=== PATIENT | female | born 1950 | race Caucasian/White ===

== ENCOUNTER → 2016-10-04 | Outpatient (CLI) | payer MEDICARE | END | disposition home or self-care (01) | LOC: CFH 07:16 | PROVIDERS: ATTEND Family Medicine | DX: E04.2 Nontoxic multinodular goiter (principal); E21.3 Hyperparathyroidism, unspecified | CPT/HCPCS: 76536 ==

== ENCOUNTER → 2017-04-28 | Outpatient (CLI) | payer MEDICARE ==
[~2017-04-28] MED LIST: CHOL200024 PO; CLON0.2T PO; GABA300C10 PO; HYDR-3240 PO; HYDR-3241 PO; LOSA100T6 PO; OMEP-110 PO; PRAV20TA2 PO; SERT50TA5 PO
[2017-04-28 08:56] LABS: ALANINE AMINOTRANSFERASE 24 U/L (12-78); ALBUMIN 4.1 g/dL (3.4-5.0); ANION GAP 10 mmol/L (5-15); CALCIUM 9.7 mg/dL (8.5-10.1); CHLORIDE 109 mmol/L (98-107); CREATININE 0.88 mg/dL (0.55-1.02)
[2017-04-28 08:58] LABS: ALKALINE PHOSPHATASE 152 U/L (45-117); BILIRUBIN,TOTAL 0.4 mg/dL (0.2-1.0); TOTAL PROTEIN 8.1 g/dL (6.4-8.2)
== END | disposition home or self-care (01) ==
LOC: STAR 08:00
PROVIDERS: ATTEND Surgery
DX: Z01.818 Encounter for other preprocedural examination (principal); R94.31 Abnormal electrocardiogram [ECG] [EKG]; E04.2 Nontoxic multinodular goiter; E21.0 Primary hyperparathyroidism
CPT/HCPCS: 36415; 80053; 93005

== ENCOUNTER 2017-05-02 07:46 | Inpatient (IN) | payer MEDICARE ==
[~2017-05-02] VITALS: Ht 167.6 cm; Wt 95.8 kg
[~2017-05-02 07:46] MED LIST changes: -HYDR-3240 PO
[2017-05-02] MEDS ORDERED: LACTATED RINGERS 1,000 ML IV SCH (08:19)
[2017-05-02] MEDS ORDERED: LIDOCAINE 1%, 2ML SQ PRN (08:30)
[2017-05-02] MEDS ORDERED: MIDAZOLAM 1 MG/ML, 2ML ONE (08:46)
[2017-05-02] MEDS ORDERED: LIDOCAINE 1%, 2ML ONE (08:51)
[2017-05-02] MEDS ORDERED: FENTANYL PF 250 MCG/5ML ONE (09:02)
[2017-05-02] MEDS ORDERED: PROPOFOL 10 MG/ML, 20ML ONE (10:15)
[2017-05-02] MEDS ORDERED: SUCCINYLCHOLINE 20 MG/ML, 10ML ONE (10:15)
[2017-05-02] MEDS ORDERED: ONDANSETRON 2MG/ML, 2ML ONE (10:19)
[2017-05-02] MEDS ORDERED: DEXAMETHASONE 4 MG/ML, 1ML ONE (10:19)
[2017-05-02] MEDS ORDERED: BUPIVACAINE/PF 0.5% INFIL ONE (10:39)
[2017-05-02] MEDS ORDERED: MIDAZOLAM 1 MG/ML, 2ML IV PRN (11:00)
[2017-05-02] MEDS ORDERED: ACETAMINOPHEN 325 MG TABLET PO PRN ×2 (11:00→15:00)
[2017-05-02] MEDS ORDERED: hydrALAzine 20 MG/ML, 1ML IV PRN ×2 (11:00→15:00)
[2017-05-02] MEDS ORDERED: ALBUTEROL SULFATE 2.5 MG/3 ML NPPB PRN (11:00)
[2017-05-02] MEDS ORDERED: EPHEDRINE 50 MG/ML, 1ML IVPush PRN (11:00)
[2017-05-02] MEDS ORDERED: PROMETHAZINE 12.5 MG SUPP PR PRN (11:00)
[2017-05-02] MEDS ORDERED: METOPROLOL 1 MG/ML, 5ML IV PRN (11:00)
[2017-05-02] MEDS ORDERED: MEPERIDINE/PF 25MG/0.5ML IVPush PRN (11:00)
[2017-05-02] MEDS ORDERED: ONDANSETRON 2MG/ML, 2ML IVPush PRN (11:00)
[2017-05-02] MEDS ORDERED: PROMETHAZINE 25 MG/ML, 1ML IV PRN (11:00)
[2017-05-02 12:10] LABS: 10MIN %DROP IOPTH 82 %; 5MIN %DROP IOPTH 81 %; IOPTH BASELINE 192 pg/mL; SAMPLE 5 %DROP IOPTH 63 %
[2017-05-02] MEDS ORDERED: FENTANYL PF 100 MCG/2ML ONE ×2 (12:40→13:14)
[2017-05-02] MEDS ORDERED: HYDROcodone/APAP 7.5-325MG/15ML UDC ONE (12:40)
[2017-05-02] MEDS: FENTANYL PF 100 MCG/2ML IV PRN ×4 (12:45→13:37)
[2017-05-02] MEDS ORDERED: METOPROLOL 1 MG/ML, 5ML ONE (12:53)
[2017-05-02] MEDS ORDERED: HYDROcodone/APAP 7.5-325MG/15ML UDC PO PRN (13:00)
[2017-05-02] MEDS ORDERED: hydrALAzine 20 MG/ML, 1ML ONE (13:14)
[2017-05-02] MEDS ORDERED: LABETALOL 5MG/ML, 20ML ONE (13:43)
[2017-05-02] MEDS ORDERED: LABETALOL 5MG/ML, 20ML IVPush STA (13:52)
[2017-05-02] MEDS ORDERED: BUPIVACAINE/PF 0.5% ONE (14:00)
[2017-05-02] MEDS ORDERED: LABETALOL 5MG/ML, 20ML IVPush PRN (14:00)
[2017-05-02] MEDS ORDERED: EPINEPHRINE 1 MG/ML, 1ML ONE (14:00)
[2017-05-02 14:25] VITALS: BP 138/87
[2017-05-02] MEDS ORDERED: ONDANSETRON 2MG/ML, 2ML IV PRN (15:00)
[2017-05-02] MEDS ORDERED: ACETAMINOPHEN 650 MG SUPP PR PRN (15:00)
[2017-05-02] MEDS: CALCIUM/VITAMIN D3 250-125 TABLET PO SCH ×2 (17:58→21:08)
[2017-05-02] MEDS: GABAPENTIN 300 MG CAPSULE PO SCH ×2 (17:58→21:08)
[2017-05-02] MEDS: HYDROcodone/APAP 5/325 TABLET PO PRN (17:58)
[2017-05-02 19:23] VITALS: BP 116/76
[2017-05-02] MEDS ORDERED: PRAVASTATIN 20 MG TABLET PO SCH (21:00)
[2017-05-02 23:49] VITALS: BP 107/72
[2017-05-03 04:40] VITALS: BP 127/78
[2017-05-03 05:14] LABS: CALCIUM 8.7 mg/dL (8.5-10.1)
[2017-05-03 07:15] VITALS: BP 110/70
[2017-05-03] MEDS ORDERED: OMEPRAZOLE 20 MG CAPSULE.DR PO SCH (07:30)
[2017-05-03] MEDS: CALCIUM/VITAMIN D3 250-125 TABLET PO SCH (07:51)
[2017-05-03] MEDS: GABAPENTIN 300 MG CAPSULE PO SCH (07:52)
[2017-05-03] MEDS: HYDROcodone/APAP 5/325 TABLET PO PRN (07:53)
[2017-05-03] MEDS ORDERED: SERTRALINE 50MG TABLET PO SCH (09:00)
[2017-05-03] MEDS ORDERED: CHOLECALCIFEROL 1,000 UNIT TABLET PO SCH (09:00)
[2017-05-03] MEDS ORDERED: LOSARTAN 50MG TABLET PO SCH (09:00)
[2017-05-03] MEDS ORDERED: HYDR-3240 PO (10:52)
== END 2017-05-03 11:00 | disposition home or self-care (01) | DRG 627 ==
LOC: OUT 07:46 → 4NOR 14:21 → OUT 14:26 → 4NOR 14:26 → DCLOUNGE 05-03 10:44
PROVIDERS: ADMIT Surgery; ATTEND Surgery
PROC: 0GTR0ZZ Resection of Parathyroid Gland, Open Approach (ICD-10-PCS; 2017-05-02)
PROC: 0GTG0ZZ Resection of Left Thyroid Gland Lobe, Open Approach (ICD-10-PCS; principal; 2017-05-02 10:00)
DX: E21.0 Primary hyperparathyroidism (principal); D35.1 Benign neoplasm of parathyroid gland; E04.2 Nontoxic multinodular goiter; I10 Essential (primary) hypertension; F32.9 Major depressive disorder, single episode, unspecified; E78.00 Pure hypercholesterolemia, unspecified
CPT/HCPCS: 36415; 82310; 83970; 88305; 88307; 88331; C1729; J0171; J1100; J2250; J2405; J2704; J3010; J3490; C1760; J0330; J0360; J7120

== ENCOUNTER → 2018-03-14 | Outpatient (CLI) | payer MEDICARE ==
[~2018-03-14] MED LIST changes: +HYDR-3240 PO; -LOSA100T6 PO; +LOSA100T7 PO
== END | disposition home or self-care (01) ==
LOC: CFH 10:08
PROVIDERS: ATTEND Family Medicine
DX: R07.9 Chest pain, unspecified (principal)
CPT/HCPCS: 71046

== ENCOUNTER → 2018-03-15 | Outpatient (CLI) | payer MEDICARE ==
[~2018-03-15] MED LIST changes: +REGADENOSON 0.4 MG/5 ML SYRINGE ONE
== END | disposition home or self-care (01) ==
LOC: CFH 10:24
PROVIDERS: ATTEND Family Medicine
DX: Z12.31 Encounter for screening mammogram for malignant neoplasm of breast (principal); D48.1 Neoplasm of uncertain behavior of connective and other soft tissue; D25.9 Leiomyoma of uterus, unspecified; R22.42 Localized swelling, mass and lump, left lower limb; R07.9 Chest pain, unspecified; R10.2 Pelvic and perineal pain
CPT/HCPCS: 76830; 76882; 77067; 78452; 93017; A9502; J2785

== ENCOUNTER → 2018-03-24 | Outpatient (CLI) | payer MEDICARE ==
[~2018-03-24] MED LIST changes: +LIDOCAINE-MPF 1%, 5ML ONE; -REGADENOSON 0.4 MG/5 ML SYRINGE ONE
== END | disposition home or self-care (01) ==
LOC: RAD 11:33
PROVIDERS: ATTEND Surgery
DX: M79.89 Other specified soft tissue disorders (principal)
CPT/HCPCS: 20206; 76942; 88305

== ENCOUNTER 2018-05-18 10:00 | Day surgery (SDC) | payer MEDICARE ==
[~2018-05-18] VITALS: Ht 153.7 cm; Wt 91.0 kg
[~2018-05-18 10:00] MED LIST changes: +BUPIVACAINE/PF-EPI 0.5% 1:200K ONE; +CHLO25TA PO; +DIPHENHYDRAMINE 50 MG/ML, 1ML IVPush PRN; +EPHEDRINE 50 MG/ML, 1ML IVPush PRN; +HALOPERIDOL 5 MG/ML IV PRN; +HYDR-3245 PO; +LABETALOL 5MG/ML, 20ML IV PRN; +LEVO25TA4 PO; -LIDOCAINE-MPF 1%, 5ML ONE; +LOSA100T14 PO; -LOSA100T7 PO; +MEPERIDINE/PF 25MG/0.5ML IVPush PRN; +OXYcodone 5 MG/5 ML ORAL.SOL UDC PO PRN; +PRAV40TA2 PO; +PROCHLORPERAZINE 5 MG/ML, 2ML IV PRN; +PROMETHAZINE 25 MG/ML, 1ML IV PRN; +SERT100T32 PO; +SERT50TA28 PO; -SERT50TA5 PO; +hydrALAzine 20 MG/ML, 1ML IV PRN
[2018-05-18 10:16] VITALS: BP 145/91
[2018-05-18] MEDS ORDERED: LACTATED RINGERS 1,000 ML IV SCH (10:26)
[2018-05-18] MEDS ORDERED: ACETAMINOPHEN 500 MG TABLET ONE (10:27)
[2018-05-18] MEDS ORDERED: GABAPENTIN 300 MG CAPSULE ONE (10:28)
[2018-05-18] MEDS ORDERED: GABAPENTIN 300 MG CAPSULE PO ONE (10:30)
[2018-05-18] MEDS ORDERED: ACETAMINOPHEN 500 MG TABLET PO ONE (10:30)
[2018-05-18] MEDS ORDERED: FENTANYL PF 100 MCG/2ML ONE ×2 (10:36→12:31)
[2018-05-18] MEDS ORDERED: DEXAMETHASONE 4 MG/ML, 1ML ONE (10:58)
[2018-05-18] MEDS ORDERED: KETOROLAC 30 MG/1 ML ONE (10:58)
[2018-05-18] MEDS ORDERED: OXYcodone 5 MG/5 ML ORAL.SOL UDC ONE (12:31)
[2018-05-18] MEDS ORDERED: METOPROLOL 1 MG/ML, 5ML ONE (12:31)
[2018-05-18] MEDS: FENTANYL PF 100 MCG/2ML IV PRN ×2 (12:36→12:50)
[2018-05-18] MEDS: METOPROLOL 1 MG/ML, 5ML IV PRN ×3 (12:36→13:05)
[2018-05-18] MEDS ORDERED: HYDROmorphone 2 MG/ML, 1ML ONE (12:49)
[2018-05-18] MEDS: HYDROmorphone 2 MG/ML, 1ML IVPush PRN ×2 (12:51→13:01)
[2018-05-18] MEDS ORDERED: CEFAZOLIN 1,000 MG ONE (13:45)
[2018-05-18] MEDS ORDERED: ONDANSETRON 2MG/ML, 2ML ONE (13:45)
[2018-05-18] MEDS ORDERED: PROPOFOL 10 MG/ML, 20ML ONE (13:45)
[2018-05-18] MEDS ORDERED: HYDROcodone/APAP 7.5-325MG/15ML UDC ONE (17:39)
[2018-05-18] MEDS ORDERED: HYDROcodone/APAP 7.5-325MG/15ML UDC PO PRN (18:00)
== END 2018-05-18 18:05 | disposition home or self-care (01) ==
LOC: OUT 10:00
PROVIDERS: ATTEND Surgery
DX: C76.52 Malignant neoplasm of left lower limb (principal); E78.00 Pure hypercholesterolemia, unspecified; E03.9 Hypothyroidism, unspecified; I10 Essential (primary) hypertension; Z98.890 Other specified postprocedural states
CPT/HCPCS: 27339; 88305; 88307; J0690; J1100; J1170; J1885; J2405; J2704; J3010; J7120

== ENCOUNTER → 2018-07-27 | Outpatient (CLI) | payer MEDICARE ==
[~2018-07-27] MED LIST changes: -BUPIVACAINE/PF-EPI 0.5% 1:200K ONE; -DIPHENHYDRAMINE 50 MG/ML, 1ML IVPush PRN; -EPHEDRINE 50 MG/ML, 1ML IVPush PRN; -HALOPERIDOL 5 MG/ML IV PRN; -LABETALOL 5MG/ML, 20ML IV PRN; -MEPERIDINE/PF 25MG/0.5ML IVPush PRN; -OXYcodone 5 MG/5 ML ORAL.SOL UDC PO PRN; -PROCHLORPERAZINE 5 MG/ML, 2ML IV PRN; -PROMETHAZINE 25 MG/ML, 1ML IV PRN; -hydrALAzine 20 MG/ML, 1ML IV PRN
== END | disposition home or self-care (01) ==
LOC: PETCFH 08:25
PROVIDERS: ATTEND Specialist
DX: C49.9 Malignant neoplasm of connective and soft tissue, unspecified (principal)
CPT/HCPCS: 78815; A9552

== ENCOUNTER 2018-11-06 09:50 | Outpatient (CLI) | payer MEDICARE | END 2018-11-06 23:59 | disposition home or self-care (01) | LOC: CFH 09:50 | PROVIDERS: ATTEND Specialist | DX: C49.9 Malignant neoplasm of connective and soft tissue, unspecified (principal); Z98.890 Other specified postprocedural states | CPT/HCPCS: 71260; 74177; Q9967 ==

== ENCOUNTER → 2019-02-01 | Outpatient (CLI) | payer MEDICARE | END | disposition home or self-care (01) | LOC: PETCFH 12:31 | PROVIDERS: ATTEND Family Medicine | DX: C49.9 Malignant neoplasm of connective and soft tissue, unspecified (principal); M25.551 Pain in right hip; Z82.49 Family history of ischemic heart disease and other diseases of the circulatory system; Z98.890 Other specified postprocedural states | CPT/HCPCS: 78815; A9552 ==

== ENCOUNTER → 2019-04-30 | Outpatient (CLI) | payer MEDICARE ==
[~2019-04-30] MED LIST changes: +OMNIPAQUE 350 MG/ML, 100ML BOTTLE ONE
== END | disposition home or self-care (01) ==
LOC: CFH 08:12
PROVIDERS: ATTEND Specialist
DX: C49.9 Malignant neoplasm of connective and soft tissue, unspecified (principal)
CPT/HCPCS: 71260; 74177; 82565; Q9967

== ENCOUNTER → 2019-11-16 | Outpatient (CLI) | payer MEDICARE | END | disposition home or self-care (01) | LOC: CFH 14:35 | PROVIDERS: ATTEND Specialist | DX: C49.9 Malignant neoplasm of connective and soft tissue, unspecified (principal); R91.8 Other nonspecific abnormal finding of lung field; J98.4 Other disorders of lung; I25.10 Atherosclerotic heart disease of native coronary artery without angina pectoris; Z90.49 Acquired absence of other specified parts of digestive tract | CPT/HCPCS: 71260; 74160; Q9967 ==